=== PATIENT | male | born 1945 | race Caucasian/White ===

== ENCOUNTER → 2016-07-09 | Outpatient (CLI) | payer MEDICARE, OTHER ==
[2016-07-09 08:02] LABS: BASOPHILS % (AUTO) 0 % (0-2); EOSINOPHILS # (AUTO) 0.3 10^3uL; EOSINOPHILS % (AUTO) 4 % (0-4); LYMPHOCYTES # (AUTO) 1.6 X10^3; MEAN CORPUSCULAR HGB CONC 34.7 g/dL (31.0-37.0); MEAN CORPUSCULAR VOLUME 95 FL (80-100); MEAN PLATELET VOLUME 10.3 FL (6.0-9.5); MONOCYTES % (AUTO) 14 % (3-11); NEUTROPHILS # (AUTO) 3.9 X10^3; NEUTROPHILS % (AUTO) 58 % (51-67); PLATELET COUNT 289 10^3uL (150-450); WHITE BLOOD COUNT 6.73 10^3uL (4.0-11.0)
[2016-07-09 08:16] LABS: ALBUMIN 4.2 g/dL (3.4-5.0); ANION GAP 15.6 MEQ/L (3-15); TOTAL PROTEIN 7.4 g/dL (6.4-8.5)
[2016-07-09 08:21] LABS: MEAN CORPUSCULAR HEMOGLOBIN 32.8 PG (26.0-34.0)
[2016-07-09 08:21] LABS: BILIRUBIN,URINE Negative (Negative); CLARITY,URINE Clear; COLOR,URINE Yellow; GLUCOSE, URINE (UA) Negative (Negative); LEUKOCYTE ESTERASE ,URINE Negative (Negative); UROBILINOGEN,URINE 0.2 mg/dL (0.2-1.0)
== END ==
LOC: LAB 07:07
PROVIDERS: ATTEND Family Medicine
DX: R06.00 Dyspnea, unspecified (principal); I49.8 Other specified cardiac arrhythmias; R79.89 Other specified abnormal findings of blood chemistry; E78.2 Mixed hyperlipidemia; D50.8 Other iron deficiency anemias; N39.0 Urinary tract infection, site not specified; E13.65 Other specified diabetes mellitus with hyperglycemia; N41.9 Inflammatory disease of prostate, unspecified; E03.4 Atrophy of thyroid (acquired); M81.0 Age-related osteoporosis without current pathological fracture; M12.80 Other specific arthropathies, not elsewhere classified, unspecified site
CPT/HCPCS: 36415; 71020; 80053; 80061; 81003; 82306; 82728; 83036; 84153; 84436; 84443; 84550; 85025; 93005